=== PATIENT | female | born 1965 ===

== ENCOUNTER 2019-02-18 10:31 | Outpatient (CLI) | payer OTHER ==
[~2019-02-18] VITALS: Ht 170.2 cm; Wt 69.9 kg
== END 2019-02-18 10:40 | disposition home or self-care (01) ==
LOC: OFIC 805 10:31
DX: K21.0 Gastro-esophageal reflux disease with esophagitis (principal); J30.89 Other allergic rhinitis; R09.81 Nasal congestion; R07.0 Pain in throat